=== PATIENT | male | born 1975 | race Hispanic/Latino ===

== ENCOUNTER 2017-11-09 19:22 | Inpatient (IN) | payer MEDICARE, OTHER ==
[~2017-11-09] VITALS: Ht 165.1 cm; Wt 36.3 kg
[2017-11-09] MEDS ORDERED: SODIUM CHLORIDE 0.9% 1000ML 1,000 ML IV ONE (20:00)
[2017-11-09] MEDS ORDERED: ONDANSETRON HCL 4 MG ORAL DISINTEGRATING TAB PO ONE (20:00)
[2017-11-09 20:57] LABS: BASOPHILS # (AUTO) 0.1 (0.0-0.1); BASOPHILS % 0.2 % (0.0-1.0); HEMATOCRIT 47.7 % (38.2-49.6); LYMPHOCYTES # (AUTO) 0.5 (1.0-3.2); LYMPHOCYTES % 1.9 % (18.0-39.1); MEAN CORPUSCULAR HEMOGLOBIN 30.3 pg (28-32); MEAN CORPUSCULAR HGB CONC 33.5 g/dL (31-35); MEAN CORPUSCULAR VOLUME 90.3 fL (81-99); MONOCYTES # (AUTO) 1.1 (0.2-0.8); MONOCYTES % 4.3 % (4.4-11.3); NEUTROPHILS # (AUTO) 22.9 (2.1-6.9); PLATELET COUNT 439 x10e3/uL (140-360); RED BLOOD COUNT 5.28 x10e6/uL (4.3-5.7); RED CELL DISTRIBUTION WIDTH 14.3 % (11.7-14.4)
[2017-11-09 21:22] LABS: ALANINE AMINOTRANSFERASE 12 IU/L (0-55); ALBUMIN/GLOBULIN RATIO 0.9 (0.8-2.0); ALKALINE PHOSPHATASE 48 IU/L (40-150); AMYLASE 188 U/L (25-125); ANION GAP 18.6 mmol/L (8-16); BLOOD UREA NITROGEN 34 mg/dL (7-26); BUN/CREATININE RATIO 28 (6-25); CALCIUM 9.6 mg/dL (8.4-10.2); CARBON DIOXIDE 22 mmol/L (22-29); CHLORIDE 105 mmol/L (98-107); EST GLOMERULAR FILTRATION RATE > 60 ML/MIN (60-); GLUCOSE 155 mg/dL (74-118); LIPASE 32 U/L (8-78); POTASSIUM 4.6 mmol/L (3.5-5.1); SODIUM 141 mmol/L (136-145)
[2017-11-09] MEDS ORDERED: IOPAMIDOL 370 MG/ML 200 ML INFUS..BTL INJ ONE (21:30)
[2017-11-09] MEDS ORDERED: SODIUM CHLORIDE 0.9% 50ML 50 ML ONE (21:30)
[2017-11-09 22:39] LABS: BAND NEUTROPHILS % (MANUAL) 26 %; MONOCYTES % (MANUAL) 2 % (3.4-9.0); NEUTROPHILS % (MANUAL) 72 % (40-74)
[2017-11-09 22:40] LABS: PLATELET ESTIMATE SLIGHTLY INCREASED; PLATELET MORPHOLOGY COMMENT NORMAL; RBC MORPHOLOGY COMMENT NORMAL
[2017-11-09 22:41] LABS: POIKILOCYTOSIS SLIGHT
--- NOTE | 2017-11-10 00:18 | Diagnostic Imaging Report ---
EXAM: CT Abdomen and Pelvis WITH contrast INDICATION: Vomiting, abdominal pain COMPARISON: 02/04/2016 TECHNIQUE: Abdomen and pelvis were scanned utilizing a multidetector helical scanner from the lung base to the pubic symphysis after administration of IV contrast. Coronal and sagittal reformations were obtained. Routine protocol was performed. Scan was performed when during portal venous phase. IV CONTRAST: 100 mL of Isovue-370 ORAL CONTRAST: None RADIATION DOSE: Total DLP: 203.26 mGy*cm Estimated effective dose: (DLP x 0.015 x size factor) mSv COMPLICATIONS: None FINDINGS: LINES and TUBES: None. LOWER THORAX: Again, large left diaphragmatic hernia/eventration. The right lung base is not visualized. HEPATOBILIARY: No focal hepatic lesions. No biliary ductal dilation. GALLBLADDER: No radio-opaque stones or sludge. No wall thickening. SPLEEN: No splenomegaly. PANCREAS: No focal masses or ductal dilatation. ADRENALS: No adrenal nodules KIDNEYS/URETERS: The right kidney is diffusely hydronephrotic without visualize normal renal cortical parenchyma. 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 The left kidney is hypertrophic with areas of multiple cortical defects in the upper pole and interpolar region. There are scattered too small to characterize hypodensities in the left kidney, likely benign. No stones. GI TRACT: There is thickening and enhancement of the rectum with fluid within it Appendix is not clearly identified. There is however no fat stranding or adenopathy in the right lower quadrant to suggest appendicitis. PELVIC ORGANS/BLADDER: Unremarkable. LYMPH NODES: No lymphadenopathy. VESSELS: Unremarkable. PERITONEUM / RETROPERITONEUM: Small amount of free fluid in the abdomen. BONES: Severe levorotoscoliosis of the thoracolumbar spine SOFT TISSUES: Unremarkable. IMPRESSION: 1. Findings are compatible with colitis/proctitis. 2. Right kidney is most likely nonfunctional with diffuse hydronephrosis, stable since prior examination 3. Multiple left renal cortical defects compatible with prior vascular or infectious insult. 4. Congenital levo rotoscoliosis of the spine. 5. Large eventration of the left hemidiaphragm. Signed by: Dr. Monty Salcedo M.D. on 11/10/2017 12:15 AM
[2017-11-10] MEDS ORDERED: LEVOFLOXACIN 500MG/D5W 100ML IV SCH (00:45)
--- OUTSIDE RECORDS SUMMARY | 2017-11-10 00:48 | XMS REPORT ---
Author Author [facility] Address Unknown Phone Unavailable Care Team Providers Care Bit Gatherer Name Role Phone EARLINE JENNINGS Unavailable Unavailable Problems This patient has no known problems. Allergies, Adverse Reactions, Alerts This patient has no known allergies or adverse reactions. Medications This patient has no known medications. Results Test Description Test Time Test Comments Text Results Atomic Results Result Comments CT ABDOMEN/PELVIS W [place] [address] Patient Name: KALI CHAPMAN MR #: [id number] : 1975 Age/Sex: 42/M Req #: [id number] Adm Physician: Ordered by: EARLINE JENNINGS MD Report #: [id number] Location: ER Room/Bed: ___ Procedure: [id number] CT/CT ABDOMEN/PELVIS W Exam Date: 11/09/17 Exam Time: 2221 REPORT STATUS: Signed EXAM: CT Abdomen and Pelvis WITH contrast INDICATION: Vomiting, abdominal pain COMPARISON: 02/04/2016 TECHNIQUE: Abdomen and pelvis were scanned utilizing a multidetector helical scanner from the lung base to the pubic symphysis after administration of IV contrast. Coronal and sagittal reformations were obtained. Routine protocol was performed. Scan was performed when during portal venous phase. IV CONTRAST: 100 mL of Isovue-370 ORAL CONTRAST: None RADIATION DOSE: Total DLP: 203.26 mGy*cm Estimated effective dose: (DLP x 0.015 x size factor) mSv COMPLICATIONS: None FINDINGS: LINES and TUBES: None. LOWER THORAX: Again, large left diaphragmatic hernia/eventration. The right lung base is not visualized. HEPATOBILIARY: No focal hepatic lesions. No biliary ductal dilation. GALLBLADDER: No radio-opaque stones or sludge. No wall thickening. SPLEEN: No splenomegaly. PANCREAS: No focal masses or ductal dilatation. ADRENALS: No adrenal nodules KIDNEYS/URETERS: The right kidney is diffusely hydronephrotic without visualize normal renal cortical parenchyma. 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 The left kidney is hypertrophic with areas of multiple cortical defects in the upper pole and interpolar region. There are scattered too small to characterize hypodensities in the left kidney, likely benign. No stones. GI TRACT: There is thickening and enhancement of the rectum with fluid within it Appendix is not clearly identified. There is however no fat stranding or adenopathy in the right lower quadrant to suggest appendicitis. PELVIC ORGANS/BLADDER: Unremarkable. LYMPH NODES: No lymphadenopathy. VESSELS: Unremarkable. PERITONEUM / RETROPERITONEUM: Small amount of free fluid in the abdomen. BONES: Severe levorotoscoliosis of the thoracolumbar spine SOFT TISSUES: Unremarkable. IMPRESSION: 1. Findings are compatible with colitis/proctitis. 2. Right kidney is most likely nonfunctional with diffuse hydronephrosis, stable since prior examination 3. Multiple left renal cortical defects compatible with prior vascular or infectious insult. 4. Congenital levo rotoscoliosis of the spine. 5. Large eventration of the left hemidiaphragm. Signed by: Dr. Monty Salcedo M.D. on 11/10/2017 12:15 AM Dictated By: MONTY DOVER MD Transcribed By: LIV on 11/10/1714 COPY TO: EARLINE JENNINGS MD
[2017-11-10] MEDS: SODIUM CHLORIDE 0.9% 1000ML 1,000 ML IV SCH ×3 (03:13→16:40)
[2017-11-10] MEDS: METRONIDAZOLE 500MG/NS 100ML 100 ML IV SCH ×5 (03:13→23:37)
[2017-11-10] MEDS: ONDANSETRON HCL INJ 2 MG/ML VIAL IV PRN (04:38)
[2017-11-10] MEDS: LEVOFLOXACIN 500MG/D5W 100ML 100 ML IV SCH (04:38)
[2017-11-10] MEDS ORDERED: ACETAMINOPHEN 1000 MG/100 ML IV STA (05:24)
[2017-11-10] MEDS ORDERED: ACETAMINOPHEN 1000 MG/100 ML IV PRN (05:30)
[2017-11-10] MEDS ORDERED: SODIUM CHLORIDE 0.9% 1000ML 1,000 ML IV ONE (05:30)
[2017-11-10 09:29] LABS: BASOPHILS # (AUTO) 0.1 (0.0-0.1); BASOPHILS % 0.3 % (0.0-1.0); HEMATOCRIT 42.6 % (38.2-49.6); HEMOGLOBIN 13.5 g/dL (14.0-18.0); LYMPHOCYTES # (AUTO) 0.6 (1.0-3.2); LYMPHOCYTES % 3.6 % (18.0-39.1); MEAN CORPUSCULAR HGB CONC 31.7 g/dL (31-35); MEAN CORPUSCULAR VOLUME 94.7 fL (81-99); MONOCYTES % 5.9 % (4.4-11.3); NEUTROPHILS # (AUTO) 15.6 (2.1-6.9); PLATELET COUNT 286 x10e3/uL (140-360); RED CELL DISTRIBUTION WIDTH 14.8 % (11.7-14.4)
[2017-11-10 10:10] LABS: ALANINE AMINOTRANSFERASE 9 IU/L (0-55); ALBUMIN/GLOBULIN RATIO 0.8 (0.8-2.0); ALKALINE PHOSPHATASE 47 IU/L (40-150); ANION GAP 15.1 mmol/L (8-16); BLOOD UREA NITROGEN 33 mg/dL (7-26); BUN/CREATININE RATIO 29 (6-25); CALCIUM 8.6 mg/dL (8.4-10.2); CARBON DIOXIDE 20 mmol/L (22-29); CHLORIDE 112 mmol/L (98-107); CREATININE, SERUM 1.13 mg/dL (0.72-1.25); EST GLOMERULAR FILTRATION RATE > 60 ML/MIN (60-); GLUCOSE 108 mg/dL (74-118); POTASSIUM 5.1 mmol/L (3.5-5.1); SODIUM 142 mmol/L (136-145)
[2017-11-10 11:36] LABS: ANISOCYTOSIS SLIGHT; LYMPHOCYTES % (MANUAL) 3 % (19-48); MONOCYTES % (MANUAL) 3 % (3.4-9.0); NEUTROPHILS % (MANUAL) 92 % (40-74); PLATELET ESTIMATE ADEQUATE; PLATELET MORPHOLOGY COMMENT NORMAL; RBC MORPHOLOGY COMMENT NORMAL
[2017-11-10] MEDS: POLYETHYLENE GLYCOL 3350 17 GM PACK PO SCH (16:41)
[2017-11-10 18:40] VITALS: BP 133/96
[2017-11-10 18:49] VITALS: BP 133/96
[2017-11-10 20:00] VITALS: BP 154/101
[2017-11-10 20:40] VITALS: BP 130/84
[2017-11-11] VITALS (7 sets, daily range): BP systolic 119–129; BP diastolic 78–89
[2017-11-11] MEDS: SODIUM CHLORIDE 0.9% 1000ML 1,000 ML IV SCH ×3 (01:00→22:44)
[2017-11-11] MEDS: LEVOFLOXACIN 500MG/D5W 100ML 100 ML IV SCH (01:10)
[2017-11-11] MEDS: ONDANSETRON HCL INJ 2 MG/ML VIAL IV PRN (02:30)
--- NOTE | 2017-11-11 04:26 | Consultation ---
DATE OF CONSULTATION: November 10, 2017 GASTROENTEROLOGY CONSULTATION REFERRING PHYSICIAN: Dr. [place] REASON FOR CONSULTATION: Proctitis. HISTORY OF PRESENT ILLNESS: Mr. Mathews is a 42-year-old man with a history of cerebral palsy and atrophic kidney. He has chronic constipation with hard stools and his mother has to give him enemas. He eats when hand-fed. He has had some vomiting, nausea and poor p.o. intake for the past day. Seems to be having abdominal pain, which was not localized. Patient is nonverbal. He has not had any diarrhea or rectal bleeding. Has not had any sick contacts. No fevers, chills or sweats. PAST MEDICAL HISTORY: Cerebral palsy, atrophic kidney. MEDICATION AND ALLERGIES: Reviewed, please see MAR, medication reconciliation form. SOCIAL HISTORY: He is dependent on family for ADLs. No alcohol, tobacco or illicit substances. FAMILY HISTORY: Positive for hypertension. REVIEW OF SYSTEMS: Obtained from caregiver, is as per HPI. Otherwise, just has chronic neurocognitive and musculoskeletal changes from his cerebral palsy. PHYSICAL EXAMINATION GENERAL: He is thin and in no acute distress. HEENT: Pupils are equal, round, reactive to light. Oropharynx shows wear on teeth. NECK: Supple. LUNGS: Clear. CARDIOVASCULAR: S1, S2. ABDOMEN: Soft. Has good bowel sounds. He is nondistended. Does not seem to be tender on exam. EXTREMITIES: He has chronic contractures, which are significant. No lesions. No cyanosis, clubbing or edema. NEUROLOGIC: He is at his baseline with cerebral palsy. He is bedbound and contracted. The electronic health record is reviewed for laboratory and radiologic studies as well as history. ASSESSMENT 1. Proctitis. 2. Chronic constipation. 3. Poor p.o. intake. 4. Dehydration. PLAN: At the current time, I agree with antibiotics to cover bowel ester. He does have leukocytosis to suggest this is an infectious process. CAT scan shows thickening and enhancement of the rectum with fluid, which is likely suggestive of proctitis. It could also have a component of proctitis related to stercoral changes rather than infectious. His chronic constipation will be addressed with MiraLAX, which can be mixed in with whatever liquid he is taking. For now, we will provide supportive care with antiemetics, antibiotics and fluids. Will monitor his nutrition and p.o. intake. He will likely need to be fed for his meals. If family is not available to do so, we will need to do that for him. If he does not respond as would be expected, we will need to consider proctoscopy. Patient's status and plan of care were discussed with family at bedside. Thank you very much for asking me to see Mr. Mathews. If you have any questions or concerns, please do not hesitate to contact me. I will follow with you. Job#: [id number]
[2017-11-11] MEDS: METRONIDAZOLE 500MG/NS 100ML 100 ML IV SCH ×3 (06:06→18:03)
[2017-11-11 07:13] LABS: BASOPHILS % 0.3 % (0.0-1.0); HEMATOCRIT 34.7 % (38.2-49.6); LYMPHOCYTES # (AUTO) 0.5 (1.0-3.2); LYMPHOCYTES % 7.3 % (18.0-39.1); MEAN CORPUSCULAR HGB CONC 32.9 g/dL (31-35); MEAN CORPUSCULAR VOLUME 91.3 fL (81-99); MONOCYTES # (AUTO) 0.7 (0.2-0.8); MONOCYTES % 9.3 % (4.4-11.3); NEUTROPHILS # (AUTO) 6.1 (2.1-6.9); PLATELET COUNT 225 x10e3/uL (140-360); RED CELL DISTRIBUTION WIDTH 14.9 % (11.7-14.4)
[2017-11-11 07:30] LABS: HEMOGLOBIN 11.4 g/dL (14.0-18.0)
[2017-11-11 07:54] LABS: ALANINE AMINOTRANSFERASE 8 IU/L (0-55); ALBUMIN 2.5 g/dL (3.5-5.0); ALBUMIN/GLOBULIN RATIO 0.8 (0.8-2.0); ALKALINE PHOSPHATASE 43 IU/L (40-150); ANION GAP 12.1 mmol/L (8-16); BLOOD UREA NITROGEN 24 mg/dL (7-26); BUN/CREATININE RATIO 29 (6-25); CALCIUM 8.7 mg/dL (8.4-10.2); CARBON DIOXIDE 19 mmol/L (22-29); CHLORIDE 112 mmol/L (98-107); CREATININE, SERUM 0.82 mg/dL (0.72-1.25); EST GLOMERULAR FILTRATION RATE > 60 ML/MIN (60-); GLUCOSE 91 mg/dL (74-118); POTASSIUM 4.1 mmol/L (3.5-5.1); SODIUM 139 mmol/L (136-145)
[2017-11-11] MEDS: POLYETHYLENE GLYCOL 3350 17 GM PACK PO SCH ×2 (08:17→18:02)
[2017-11-11] MEDS ORDERED: ONDANSETRON HCL 4 MG ORAL DISINTEGRATING TAB PO PRN (08:30)
[2017-11-11 09:40] LABS: BAND NEUTROPHILS % (MANUAL) 5 %; LYMPHOCYTES % (MANUAL) 8 % (19-48); MONOCYTES % (MANUAL) 9 % (3.4-9.0); NEUTROPHILS % (MANUAL) 78 % (40-74); PLATELET ESTIMATE ADEQUATE; PLATELET MORPHOLOGY COMMENT NORMAL; RBC MORPHOLOGY COMMENT NORMAL
[2017-11-12] VITALS (8 sets, daily range): BP systolic 129–167; BP diastolic 83–95
[2017-11-12] MEDS: METRONIDAZOLE 500MG/NS 100ML 100 ML IV SCH ×5 (00:16→23:49)
[2017-11-12] MEDS: SODIUM CHLORIDE 0.9% 1000ML 1,000 ML IV SCH ×3 (00:42→16:42)
[2017-11-12] MEDS: LEVOFLOXACIN 500MG/D5W 100ML 100 ML IV SCH (02:22)
[2017-11-12] MEDS ORDERED: SOD PHOSPHATE/SOD BIPHOSPHATE ENEMA 132 ML BTL PR ONE (08:00)
[2017-11-12] MEDS: POLYETHYLENE GLYCOL 3350 17 GM PACK PO SCH ×3 (10:00→21:00)
[2017-11-12] MEDS ORDERED: SOD PHOSPHATE/SOD BIPHOSPHATE ENEMA 132 ML BTL PR NR (14:00)
[2017-11-13] VITALS (8 sets, daily range): BP systolic 124–152; BP diastolic 79–103
[2017-11-13] MEDS: SODIUM CHLORIDE 0.9% 1000ML 1,000 ML IV SCH (00:42)
[2017-11-13] MEDS: LEVOFLOXACIN 500MG/D5W 100ML 100 ML IV SCH (00:46)
[2017-11-13] MEDS: METRONIDAZOLE 500MG/NS 100ML 100 ML IV SCH ×4 (05:35→23:53)
[2017-11-13] MEDS: POLYETHYLENE GLYCOL 3350 17 GM PACK PO SCH ×3 (09:32→21:00)
[2017-11-13] MEDS ORDERED: METOPROLOL TARTRATE 25 MG TAB PO ONE (15:15)
[2017-11-14] VITALS: BP 129/88
[2017-11-14] MEDS: LEVOFLOXACIN 500MG/D5W 100ML 100 ML IV SCH (00:30)
[2017-11-14 04:00] VITALS: BP 137/87
[2017-11-14] MEDS: METRONIDAZOLE 500MG/NS 100ML 100 ML IV SCH (05:58)
[2017-11-14 08:20] VITALS: BP 131/90
[2017-11-14] MEDS: POLYETHYLENE GLYCOL 3350 17 GM PACK PO SCH (09:00)
[2017-11-14 11:54] VITALS: BP 127/98
[2017-11-14] MEDS ORDERED: FLAGYL500 MG PO (13:42)
== END 2017-11-14 13:55 | disposition home or self-care (01) | DRG 371 ==
LOC: ER 19:22 → ERHOLD 11-10 00:45 → MED/SURG3 11-10 17:07
PROVIDERS: ADMIT Internal Medicine; ATTEND Internal Medicine
DX: A04.9 Bacterial intestinal infection, unspecified (principal); E43 Unspecified severe protein-calorie malnutrition; Z68.1 Body mass index [BMI] 19.9 or less, adult; K62.89 Other specified diseases of anus and rectum; E86.0 Dehydration; G80.9 Cerebral palsy, unspecified; K59.09 Other constipation; M24.50 Contracture, unspecified joint
CPT/HCPCS: 36415; 74177; 80053; 82150; 83690; 85025; 87045; 96360; 99285; J1956; J2405; J7030; Q9967